=== PATIENT | female | born 1950 | race Caucasian/White ===

== ENCOUNTER → 2016-07-16 | Outpatient (CLI) | payer BC ==
[~2016-07-16] MED LIST: ATENOLOL50 MG PO; CLINDAMYCIN300 MG PO; CRESTOR10 M1 PO; CRESTOR10 MG PO; DARVOCET N 1001 TAB PO; GLYBURIDE5 MG PO; HYDROCODON-ACE1 EACH PO; KLONOPIN0.5 MG PO; KLONOPIN1 M1 PO; KLONOPIN1 MG PO; LASIX20 MG PO; LEVAQUIN750 M1 PO; METFORMIN500 MG PO; Motrin,Rufen800 MG PO; NATURE'S BLEND F1 MG PO; NORVASC5 MG PO; OYSTER SHELL CA1 T20 PO; POTASSIUM20 MEQ PO; PREDNISONE10 MG PO; PRINIVIL40 MG PO; VANCOCIN; VITAMIN D50000 I2 PO; VITAMIN D50000 I3 PO; ZANTAC 150150 MG PO; ZOLOFT100 MG PO; Zestril,Prinivi40 MG PO
[2016-07-16 09:22] LABS: HEMATOCRIT 39.4 % (37.0-47.0); HEMOGLOBIN 11.5 g/dl (12.0-16.0); MEAN CORPUSCULAR HGB 26.6 pg (27.0-31.0); MEAN CORPUSCULAR HGB CONC 29.2 g/dl (33.0-37.0); MEAN PLATELET VOLUME 11.8 fl (9.6-12.3); RED BLOOD COUNT 4.33 10*6/uL (4.10-5.10); RED CELL DISTRI WIDTH 14.8 % (0-14.5); WHITE BLOOD COUNT 6.8 10*3/uL (4.8-10.8)
[2016-07-16 09:51] LABS: ALBUMIN 3.2 gm/dl (3.1-4.5); BILIRUBIN, TOTAL 0.3 mg/dl (0.2-1.0); POTASSIUM 3.5 mmol/L (3.5-5.1); THYROID STIM HORMONE (HS) 2.59 uIU/ml (0.358-4.75); TOTAL PROTEIN 6.4 gm/dL (6.4-8.2)
[2016-07-16 10:08] LABS: VITAMIN D, 25-HYDROXY 115.9 ng/mL (30-100)
== END | disposition home or self-care (01) ==
LOC: LAB 08:49
PROVIDERS: Internal Medicine
DX: E11.9 Type 2 diabetes mellitus without complications (principal); I10 Essential (primary) hypertension; M47.26 Other spondylosis with radiculopathy, lumbar region; E78.5 Hyperlipidemia, unspecified; E55.9 Vitamin D deficiency, unspecified

== ENCOUNTER → 2016-07-23 | Outpatient (CLI) | payer BC | END | disposition home or self-care (01) | LOC: RAD 15:36 | DX: M47.895 Other spondylosis, thoracolumbar region (principal); G89.29 Other chronic pain; M41.84 Other forms of scoliosis, thoracic region; M54.41 Lumbago with sciatica, right side ==

== ENCOUNTER → 2016-11-09 | Outpatient (CLI) | payer BC ==
[2016-11-09 11:29] LABS: EST GLOM FILT AFRICAN AMERICAN > 60 ml/min
== END | disposition home or self-care (01) ==
LOC: CT 11-02 11:00 → LAB 10:52 → CT 11:00
PROVIDERS: Internal Medicine
DX: R91.1 Solitary pulmonary nodule (principal); J44.9 Chronic obstructive pulmonary disease, unspecified; R05 Cough; J45.909 Unspecified asthma, uncomplicated

== ENCOUNTER 2018-06-16 14:14 | Inpatient (IN) | payer BC ==
[~2018-06-16] VITALS: Ht 154.9 cm; Wt 89.1 kg
--- NOTE | ~2018-06-16 | PR ---
[place], [place] PROGRESS NOTE NAME: BO BOBBY UNIT #: [id number] ROOM: [facility] DOCTOR: SCHUYLER BURGESS MD,MAURA BIRTHDATE: [birth year] DOS: 06/18/2018 SUBJECTIVE: The patient remains on mechanical ventilation in the last 24 hours, PEEP of 10 cm water assist control volume control mechanical ventilation. Gradual reduction of the oxygen requirement was noted. She has not been noted with any acute hemodynamic instability. High dose sedation needed for comfort. The oxygen supplementation decreased 35% gradually from 100% oxygen supplementation in the last 24 hours. The patient is currently intubated orally. The patient does follow vocal commands with some agitated behavior noted at times with current use of intravenous infusion of Diprivan, has received several doses of Versed per nursing staff. She has not been reported with any hemodynamic instability. There were no signs of significant tachycardia. Only mild tachycardia noted, heart rate 100-102 beats per minute, which appeared to be sinus at the present time. Feeding was continued, well tolerated. Review of systems could not be completed since the patient is currently intubated. OBJECTIVE: VITAL SIGNS: Normal temperature, respiratory rate 18-20, heart rate 104-100, blood pressure 121/61 to 115/59. Pulse oxygen saturation recorded as 93% on 35% mechanical ventilator, assist control volume control mechanical ventilation. HEENT: Head was atraumatic. Eyes nonicterus. NECK: Supple. CARDIOVASCULAR: S1 and S2 audible. LUNGS: Noted without any crackles. Breaths are noted mildly decreased bilaterally. ABDOMEN: Soft with moderate obesity. Bowel sounds present. EXTREMITIES: No edema. VISIBLE SKIN: No lesions or rashes. MUSCULOSKELETAL: Without acute deformities. CENTRAL NERVOUS SYSTEM: Mental status appeared to be appropriate at this time. LABORATORY DATA: The patient had arterial blood gases which were done post-intubation, mechanical ventilation. The first arterial blood gas that was done shows a pH of 7.32, pCO2 of 55, pO2 of 100 on 100% oxygen supplementation. Arterial blood gas repeated a few hours later on 60% oxygen, pH is 7.33, pCO2 of 51, pO2 of 109. Arterial blood gas this morning on assist control volume control mechanical ventilation, pH is 7.33, pCO2 of 53, pO2 of 81. Chest x-ray: Mild pulmonary venous congestion, marked improvement in aeration of the lungs was noted with resolution of atelectasis and infiltration reduction in the left lower lobe. Endotracheal tube and NG tube were noted appropriately placed. IMPRESSION: 1. Resolving [id number] hypercapnic hypoxic respiratory failure as a result of acute pneumonia and atelectasis, mucus impaction of the left lower lobe bronchus. 2. Acute exacerbation of chronic obstructive pulmonary disease. 3. History of chronic nicotine dependency as well. 4. Moderate obesity. [place], [place] PROGRESS NOTE NAME: BO BOBBY UNIT #: [id number] ROOM: [facility] DOCTOR: SCHUYLER BURGESS MD,MAURA BIRTHDATE: [birth year] PLAN OF THERAPY: The patient was given a trial of CPAP 5 pressure support 10, but appeared to be agitated; however, the tidals were noted adequate at 500 and 600 mL on CPAP 5 pressure support of 10, maintaining normal oxygen saturation after observation about 10 minutes. The patient was asked about extubation. Post-extubation will be started on BiPAP for respiratory support. Bronchodilators administration. The BiPAP is started in the setting of 16/10. Two hours later, the patient could be started on clear liquids and advanced her diet. Usual care. Reduction of Solu-Medrol will be done. Decrease the Solu-Medrol to 60 mg b.i.d. Discontinuation of Protonix as it is not necessary for the patient and the patient will be liberated from mechanical ventilation. Versed and Diprivan have been already discontinued. Usual care, other supportive therapy, plan of management. Discontinuation of chlorhexidine rinse for this patient as well. Supportive therapy, plan of management and other care. Additional changes will be made based on progression of the illness in the next several hours. No changes in the antibiotics. Continue medical management for hyperglycemia. DVT prophylaxis. Total time in pulmonary/critical care evaluation and management was 36 minutes. MAURA PAYAN MD CM:PNTRANS [id number] MAURA BURGESS MD 06/18/18 1501 interface
--- NOTE | ~2018-06-16 | PROC NOTE ---
[place], [place] PROCEDURE NOTE NAME: BO BOBBY UNIT #: [id number] ROOM: [facility] DOCTOR: SCHUYLER BURGESS MD,MAURA BIRTHDATE: [birth year] DOS: 06/17/2018 PROCEDURE: Bronchoscopy. PREOPERATIVE DIAGNOSIS: Atelectasis of the left lung. POSTOPERATIVE DIAGNOSES: Removal of the complete occlusion with the mucus plug of the left lower lobe bronchus and the upper lung bronchus. There were no endobronchial obstructive lesions, significant inflammatory changes noted consistent with acute pneumonia. There were no discrete endobronchial lesions seen. PROCEDURE DESCRIPTION: Informed consent obtained for the patient. The patient brought to the OR, intubated successfully. Procedure done under general anesthesia. After the patient was intubated, the video bronchoscope advanced to the endotracheal tube lower part of trachea. Lower part of the trachea noted small to moderate secretion right upper, right middle, right lower lobe bronchi were all noted patent. Minimal secretions suctioned out. The patient noted complete occlusion of the left lower lobe bronchus with upper lung bronchus, mixture of the mucoid secretion with mixture of purulent secretion. There was no aspiration particles noted or food. No endobronchial obstruction noted. No severe inflammatory changes noted with mucosal edema in that area. All the secretions suctioned out with the help of normal saline wash, sent for cultures. Chest x-ray postprocedure was done and noted with reexpansion of the left lower lung. The patient remains intubated at this time with further medical management order with the ICU orders. MAURA PAYAN MD CM:PROCNOTE:PROCEDURE NOTE [id number] MAURA BURGESS MD
--- NOTE | ~2018-06-16 | PR ---
[place], [place] PROGRESS NOTE [id number] UNIT #: [id number] ROOM: 408 DOCTOR: SCHUYLER BURGESS MD,MAURA BIRTHDATE: [birth year] DOS: 06/19/2018 SUBJECTIVE: The patient has been noted comfortable at this time, resting on the back. The patient was liberated from mechanical ventilation yesterday without any difficulty. Has not been reported any symptoms of chest pain. Denies symptoms of nausea, vomiting, diarrhea, abdominal pain, hematemesis, melena, or hematochezia. General weakness and fatigue were noted, which has been improving. There were no symptoms of abdominal pain. There were no symptoms of pain of the lower extremity. Remaining systems were reviewed. They were noted all negative. PHYSICAL EXAMINATION: VITAL SIGNS: Normal temperature, respiratory rate of 20, heart rate 74, blood pressure 150/90 this morning. Pulse oxygen saturation on 4 liter nasal cannula was 90% saturation ____ BiPAP was 95% saturation. HEENT: Small hemorrhage in the conjunctiva was noted in the left eye. NECK: Supple. CARDIOVASCULAR: S1 and S2 audible. LUNGS: Moderate reduction of breath sounds in the lungs were noted bilaterally. ABDOMEN: Soft and nontender. Bowel sounds present. EXTREMITIES: The patient was noted without any acute edema. MUSCULOSKELETAL: Without any acute deformities. CENTRAL NERVOUS SYSTEM: The patient cranial nerves 2-12 intact. General weakness was noted. SKIN: No lesions or rashes. LABORATORY DATA: Final cultures of the bronchial washing noted as no bacterial growth. CMP that was done on 06/19/2018, BUN 31, creatinine was normal, glucose 113. Magnesium was 2.2. Albumin 2.2. AST and ALT was noted mildly elevated. CBC: WBC count was normal, hemoglobin 10.3, and platelet count normal. IMPRESSION: 1. Liberation from mechanical ventilation ____ resolving due to chronic hypoxic and hypercapnic respiratory failure, atelectasis. Pleural fluid noted on the left side. 2. Abnormal LFTs may be related to hepatic steatosis, other etiology should be considered. 3. Chronic nicotine dependence. PLAN OF Treatment: Solu-Medrol dose at this time will be decreased to 40 mg b.i.d. Ambulation will be encouraged. Continue the BiPAP, which was ordered yesterday intermittently during the day and continue at nighttime. Supportive therapy, plan of management and care plan of treatment and therapies. [place], [place] PROGRESS NOTE NAME: BO BOBBY UNIT #: [id number] ROOM: [facility] DOCTOR: MAURA JIMENEZ MD BIRTHDATE: [birth year] MAURA PAYAN MD CM:PNTRANS [id number] MAURA BURGESS MD 06/19/18 1415 interface
--- NOTE | ~2018-06-16 | CON ---
[place], [place] REPORT OF CONSULTATION NAME: BO BOBBY UNIT #: [id number] ROOM: [facility] DOCTOR: MAURA JIMENEZ MD BIRTHDATE: [birth year] DOS: 06/17/2018 PULMONARY CRITICAL CARE CONSULTATION, EVALUATION, AND MANAGEMENT CONSULTATION REQUESTED BY: Hospitalist services. REASON FOR CONSULTATION: For assessment of current atelectasis of the left lung as well as respiratory failure management. HISTORY OF PRESENT ILLNESS: This is a 67-year-old white female patient, who has been admitted under the hospitalist services on 06/16/2018. The patient was noted with ongoing symptoms of getting generalized weakness and fatigue and multiple falls at home because of that. The patient presented to the Emergency Room for further assessment. Shortness breath was also reported with exertion with nonproductive cough, which has been noted excessive, not able to expectorate sputum. The patient has been admitted to the hospital. The chest x-ray noted with whiteout of the left lung. The patient has CT of the chest done, which shows atelectasis of the left lung as well with associated pleural fluid. She has been admitted to the Intensive Care Unit for further medical management, currently noted on the BiPAP for the medical management of respiratory failure. The BiPAP has now been noted with complete resolution of the respiratory distress. The BiPAP was also noted with movement of the mass several times with excessive leakage. The patient denies any symptoms of hemoptysis. She does not report any symptoms of chest pain. PAST MEDICAL HISTORY: 1. The patient reported as history of congestive heart failure, systolic or diastolic unknown. 2. Reported history of pulmonary nodules on the right side. 3. Hyperlipidemia. 4. Gastroesophageal reflux. 5. Essential hypertension. 6. Chronic obesity. 7. Type 2 diabetes mellitus. PAST SURGICAL HISTORY: Reported as surgery of the arm and D and C. HOME MEDICATIONS: Reported as use of Norvasc, vitamin D, vitamin D3, Klonopin, folic acid, Motrin, Basaglar insulin, lisinopril, metformin, potassium chloride, ranitidine, sertraline, Anoro Ellipta, Crestor, and Zoloft. DRUG ALLERGIES: REPORTED ALLERGIES TO THE VALIUM, IT IS CAUSING HALLUCINATIONS. SOCIAL HISTORY: The patient is currently not , lives at home, has been noted heavy tobacco use from the age of [id number], 2 packs of cigarettes per day, active use until hospitalization. She denies ETOH, alcohol use, or illicit drugs. FAMILY HISTORY: The patient's father is an 87-year-old with history of hypertension. The patient's mother is an 87-year-old with history of diabetes [place], [place] REPORT OF CONSULTATION NAME: BO BOBBY UNIT #: [id number] ROOM: [facility] DOCTOR: MAURA JIMENEZ MD BIRTHDATE: [birth year] and hypertension reported. REVIEW OF SYSTEMS: Limited because of the current use of the BiPAP and respiratory distress reported with symptoms of severe fatigue and tiredness as well. There were no symptoms of fever or chills reported. EYES: Denies burning, discharge, redness, or diplopia. EARS, NOSE, AND THROAT SYMPTOMS: No sore throat, hoarseness, otalgia, or postnasal drainage. CARDIOVASCULAR SYSTEM: Denies any orthopnea, edema, pain of the lower extremities, or palpitations. GASTROINTESTINAL SYMPTOMS: No dysphagia, nausea, vomiting, diarrhea, abdominal pain, hematemesis, melena, or hematochezia. SKIN: Denies abnormal lesions or rashes. MUSCULOSKELETAL: The patient denies joint pain, redness, or tenderness. Remaining systems were reviewed and they were noted all negative. PHYSICAL EXAMINATION: GENERAL: This is a 67-year-old white female patient with respiratory distress, tachypnea, on the BiPAP this morning of assessment. The patient was assessed initially. Height of the patient recorded as 5 feet 1 inch, weight of 196 pounds, BMI of 37. VITAL SIGNS: Normal temperature. The respiratory rate of the patient ranges between 20-24, heart rate of 91-100. Temperature of the patient noted as 101 degree Fahrenheit. Blood pressure is 148/81-151/82. Pulse oxygen saturation on 4 liters nasal cannula was 85%, on BiPAP was 94% saturation on admission, on room air was 78% saturation of oxygen. HEENT: Head was atraumatic. Eyes nonicterus. NECK: Supple. CARDIOVASCULAR SYSTEM: S1, S2 is audible. LUNGS: Wheezing was noted on the right chest auscultation, absent breath sounds of the left chest auscultation. ABDOMEN: Soft with moderate obesity. Bowel sounds present. EXTREMITIES: Noted without any edema. Chronic obesity findings. MUSCULOSKELETAL: With no deformities. VISIBLE SKIN: No lesions or rashes. CENTRAL NERVOUS SYSTEM: The patient is able to understand the questions and answer the questions. There were no focal deficits. Further examination could not be performed. LABORATORY DATA ASSESSMENT: CBC that was done on 06/16/2018, WBC count is 20.9, hemoglobin and hematocrit are normal, and platelet count was normal. The lactic acid is 2.0 yesterday. PT and PTT yesterday was normal. CMP yesterday on admission, BUN is 25, creatinine is normal, glucose is 190, potassium is 2.7, and CO2 of 33. CPK is 360. The troponin additional 2 sets yesterday remains normal. PT and INR this morning was 1.2, PTT was normal. The CBC of the patient this morning, WBC count is 16.8, hemoglobin is 11.3, and platelet count is normal. The CMP of the patient this morning, normal BUN and creatinine, glucose is 244, potassium is noted at 3.5, normal after supplementation of potassium from yesterday. Arterial blood gases that was done yesterday in the evening, pH of 7.39, pCO2 of 51, and pO2 of 76 on 11 liters high flow nasal [place], [place] REPORT OF CONSULTATION NAME: BO BOBBY UNIT #: [id number] ROOM: [facility] DOCTOR: LYNN JIMENEZ MDM BIRTHDATE: [birth year] cannula. No other arterial blood gas was done afterwards. RADIOLOGY DATA ASSESSMENT: Chest x-ray that was done yesterday on admission as left lower lobe infiltration with increased pulmonary venous congestion marking was noted. The CT scan of the chest that was done as a CTA protocol later on in the evening shows complete atelectasis in left lower lobe as well as partial of the left upper lobe. A small pleural fluids were noted with that. There was no visible lymphadenopathy. A 13 mm nodule noted in the right lower lobe, which has been noted stable in comparison of the patient's CT scan of the chest that was done on 11/09/2016. IMPRESSION: 1. The patient has been currently noted with acute aspiration pneumonia with significant occlusion of the left lower lobe and left upper lobe bronchus with atelectasis. 2. A 13 mm nodule in the right lower lobe, which appear to be stable, unchanged from previous CT scan assessment. 3. Progressive severe acute hypoxemic respiratory failure secondary to current acute pneumonia, endobronchial obstruction, and exacerbation of chronic obstructive pulmonary disease combination. 4. The patient with chronic hypercarbia was also seen as well. 5. Heavy nicotine dependence. 6. Moderate obesity. 7. Other medical illnesses reported as unchanged. 8. Severe hypokalemia, seemed to be resolved, was resulting in generalized weakness. PLAN OF MANAGEMENT: The patient's cultures on the blood has been taken. The patient will be taken to the OR, where she would be intubated, bronchoscopy will be done, and possible continuation of mechanical ventilation after that for at least 24-48 hours. If there be no endobronchial obstructive lesions, keep the lungs expanded. Bronchodilators to be continued every 4 hours. Use of the corticosteroids. Community-acquired pneumonia, gram-positive infection would be considered as well as Strep pneumonia. The patient is receiving intravenous Rocephin 1 gram b.i.d. and Zithromax ____ dosing for the community-acquired pneumonia management in the ICU. DVT prophylaxis. Ventilator bundle management could be started once the patient is intubated. She remains intubated. She will be started nutritional support if she remains on the ventilator as trophic feeding as Pulmocare 20 mL an hour. Other additional treatment changes will be ordered based on the progression of the illness. Total time in pulmonary critical care, evaluation, and management for the patient was 39 minutes. [place], [place] REPORT OF CONSULTATION NAME: BO BOBBY UNIT #: [id number] ROOM: [facility] DOCTOR: MAURA JIMENEZ MD BIRTHDATE: [birth year] MAURA PAYAN MD CM:CONSTR:REPORT OF CONSULTATION 1326 06/18/18 0304 interface
--- NOTE | ~2018-06-16 | EKG ---
[place], [place] ELECTROCARDIOGRAM REPORT NAME: BO BOBBY UNIT #: [id number] ROOM: [facility] DOCTOR: KODY DRAFT REPORT BIRTHDATE: [birth year] [facility] Test Date: 2018-06-16 Test Time: 14:52:30 Pat Name: BO BOBBY Department: Room: [facility] Gender: F Bandage Maker: Alondra Hudson : 1950 Requested By: VALERIE BINGHAM PA-C Order Number: [id number] Reading MD: Gabe Kerr MD Measurements Intervals [place] Rate: 94 P: 63 MI: 140 QRS: 23 QRSD: 94 T: 33 QT: 349 QTc: 437 Interpretive Statements Sinus rhythm Atrial premature complexes Abnormal R-wave progression, late transition Baseline wander in lead(s) V2 Electronically Signed On 06-17-2018 12:42:11 PST by Gabe Kerr MD CM:EKGRPT:ELECTROCARDIOGRAM REPORT [id number] VALERIE BINGHAM PA-C EPIPHZACHERY DRAFT REPORT VALERIE BINGHAM PA-C
[2018-06-16 14:25] VITALS: BP 148/81
[2018-06-16 14:48] VITALS: BP 141/79
[2018-06-16 14:54] LABS: BILIRUBIN NEGATIVE (NEGATIVE); BLOOD 3+ (NEGATIVE); CLARITY SL CLOUDY (CLEAR); COLOR YELLOW (YELLOW); GLUCOSE NEGATIVE (NEGATIVE); KETONE 1+ (NEGATIVE); LEUKO ESTERASE NEGATIVE (NEGATIVE); NITRITE POSITIVE (NEGATIVE); SPECIFIC GRAVITY >= 1.030 (1.005-1.030)
[2018-06-16 15:02] LABS: BACTERIA 4+; WBC 16-20 wbc/hpf (0-5)
[2018-06-16 15:08] LABS: BASO % 0.1 % (0.0-1.0); HEMOGLOBIN 12.3 g/dl (12.0-16.0); LYMPH # 0.9 10*3/uL (1.3-4.4); LYMPH % 4.4 % (27.0-41.0); MEAN CELL VOLUME 86.1 fl (81.0-99.0); MEAN CORPUSCULAR HGB 25.8 pg (27.0-31.0); MEAN PLATELET VOLUME 11.1 fl (9.6-12.3); MONO # 1.1 10*3/uL (0.1-1.0); MONO % 5.4 % (3.0-9.0); NEUT # 18.6 10*3/uL (2.3-7.9); NEUT % 89.3 % (47.0-73.0); PLATELET COUNT AUTOMATED 166 10*3/uL (130-400); RED BLOOD COUNT 4.76 10*6/uL (4.10-5.10); RED CELL DISTRI WIDTH 17.9 % (0-14.5); WHITE BLOOD COUNT 20.9 10*3/uL (4.8-10.8)
[2018-06-16 15:22] LABS: ACT PARTIAL THROMBO TIME 28.2 SECONDS (20.8-31.5); INTERNATIONAL NORM RATIO 1.1 (2.0-3.5)
[2018-06-16 15:35] LABS: ALBUMIN 2.7 gm/dl (3.1-4.5); ALKALINE PHOSPHATASE 138 U/L (45-117); BUN 25 mg/dl (7-24); CHLORIDE 96 mmol/L (98-107); CPK 360 U/L (26-192); CREATININE 0.71 mg/dL (0.55-1.02); LIPASE 61 U/L (73-393); POTASSIUM 2.7 mmol/L (3.5-5.1); SGOT/AST 17 IU/L (3-35); SGPT/ALT 10 U/L (12-78); SODIUM 137 mmol/L (136-145); TOTAL PROTEIN 7.4 gm/dL (6.4-8.2)
[2018-06-16 15:36] LABS: TROPONIN I < 0.015 ng/ml (<0.045)
[2018-06-16 15:48] VITALS: BP 146/72
[2018-06-16 16:20] VITALS: BP 148/74
[2018-06-16 17:15] VITALS: BP 151/82
[2018-06-16] MEDS ORDERED: GLUCOPHAGE500 M1 PO (17:55)
[2018-06-16] MEDS ORDERED: BASAG SOL SC ×2 (18:02→18:03)
[2018-06-16] MEDS ORDERED: VITAMIN D32000 UNI1 PO (18:04)
[2018-06-16] MEDS ORDERED: ANORO ELLIPTA1 EACH INH (18:07)
[2018-06-16] MEDS ORDERED: NOVOLOG FL100 UNIT/1 SC (18:09)
[2018-06-16 20:00] VITALS: BP 113/52
[2018-06-16 21:10] LABS: ABG BASE EXCESS 5.6 mmol/L (-2.0-2.0); ABG HCO3 30.8 mmol/l (22-26); ABG O2 SATURATION 95.9 % (95-97); ARTERIAL BLOOD GAS PCO2 51.3 mmHg (35-45); ARTERIAL BLOOD GAS PH 7.399 (7.35-7.45); ARTERIAL BLOOD GAS PO2 76.8 mmHg (80-90)
[2018-06-17] VITALS (8 sets, daily range): BP systolic 95–132; BP diastolic 51–78
[2018-06-17 03:40] LABS: HEMOGLOBIN 11.3 g/dl (12.0-16.0); MEAN CELL VOLUME 85.6 fl (81.0-99.0); MEAN CORPUSCULAR HGB 26.2 pg (27.0-31.0); MEAN CORPUSCULAR HGB CONC 30.5 g/dl (33.0-37.0); MEAN PLATELET VOLUME 11.4 fl (9.6-12.3); PLATELET COUNT AUTOMATED 145 10*3/uL (130-400); RED BLOOD COUNT 4.32 10*6/uL (4.10-5.10); RED CELL DISTRI WIDTH 18.1 % (0-14.5); WHITE BLOOD COUNT 16.8 10*3/uL (4.8-10.8)
[2018-06-17 03:55] LABS: ACT PARTIAL THROMBO TIME 28.9 SECONDS (20.8-31.5); INTERNATIONAL NORM RATIO 1.2 (2.0-3.5)
[2018-06-17 03:59] LABS: ALBUMIN 2.2 gm/dl (3.1-4.5); ALKALINE PHOSPHATASE 135 U/L (45-117); BUN 23 mg/dl (7-24); CHLORIDE 102 mmol/L (98-107); CHOLESTEROL 89 mg/dL (<200); CREATININE 0.68 mg/dL (0.55-1.02); HDL CHOLESTEROL 7 mg/dl (40-60); LDL CHOLESTEROL 17 mg/dL (9-159); PHOSPHOROUS 2.6 mg/dL (2.5-4.9); POTASSIUM 3.5 mmol/L (3.5-5.1); SGOT/AST 19 IU/L (3-35); SGPT/ALT 11 U/L (12-78); SODIUM 139 mmol/L (136-145); TOTAL PROTEIN 6.7 gm/dL (6.4-8.2); TRIGLYCERIDES 323 mg/dl (<150); VLDL CHOLESTEROL 65 mg/dL (6-40)
[2018-06-17 04:00] LABS: FREE T4 1.19 ng/dl (0.76-1.46)
[2018-06-17 04:04] LABS: THYROID STIM HORMONE (HS) 0.494 uIU/ml (0.358-4.75)
[2018-06-17 04:06] LABS: PLATELET SUFFICIENCY LOW (NORMAL); TOTAL CELLS COUNTED 100 #CELLS
[2018-06-17 13:12] LABS: ABG BASE EXCESS 1.5 mmol/L (-2.0-2.0); ABG HCO3 28.1 mmol/l (22-26); ABG O2 SATURATION 99.5 % (95-97); ARTERIAL BLOOD GAS PCO2 55.9 mmHg (35-45); ARTERIAL BLOOD GAS PH 7.32 (7.35-7.45)
[2018-06-17 17:41] LABS: ABG BASE EXCESS 0.6 mmol/L (-2.0-2.0); ABG HCO3 26.8 mmol/l (22-26); ARTERIAL BLOOD GAS PCO2 51.5 mmHg (35-45); ARTERIAL BLOOD GAS PH 7.332 (7.35-7.45)
[2018-06-18] VITALS (8 sets, daily range): BP systolic 100–139; BP diastolic 49–98
[2018-06-18 06:28] LABS: BASO % 0.1 % (0.0-1.0); HEMATOCRIT 34.4 % (37.0-47.0); HEMOGLOBIN 10.2 g/dl (12.0-16.0); LYMPH # 0.5 10*3/uL (1.3-4.4); LYMPH % 5.3 % (27.0-41.0); MEAN CORPUSCULAR HGB 26.3 pg (27.0-31.0); MEAN CORPUSCULAR HGB CONC 29.7 g/dl (33.0-37.0); MEAN PLATELET VOLUME 11.8 fl (9.6-12.3); MONO # 0.3 10*3/uL (0.1-1.0); MONO % 3.3 % (3.0-9.0); NEUT # 8.4 10*3/uL (2.3-7.9); NEUT % 89.5 % (47.0-73.0); PLATELET COUNT AUTOMATED 148 10*3/uL (130-400); RED BLOOD COUNT 3.88 10*6/uL (4.10-5.10); RED CELL DISTRI WIDTH 18.6 % (0-14.5); WHITE BLOOD COUNT 9.4 10*3/uL (4.8-10.8)
[2018-06-18 06:52] LABS: MEAN CELL VOLUME 88.7 fl (81.0-99.0)
[2018-06-18 06:57] LABS: CHLORIDE 102 mmol/L (98-107); SODIUM 139 mmol/L (136-145)
[2018-06-18 07:04] LABS: ABG HCO3 28.1 mmol/l (22-26); ABG O2 SATURATION 97.3 % (95-97); ARTERIAL BLOOD GAS PCO2 53.6 mmHg (35-45); ARTERIAL BLOOD GAS PH 7.337 (7.35-7.45); ARTERIAL BLOOD GAS PO2 81.5 mmHg (80-90)
[2018-06-18 07:04] LABS: ALBUMIN 1.9 gm/dl (3.1-4.5); ALKALINE PHOSPHATASE 129 U/L (45-117); CREATININE 0.73 mg/dL (0.55-1.02); PHOSPHOROUS 2.6 mg/dL (2.5-4.9); SGOT/AST 41 IU/L (3-35); SGPT/ALT 28 U/L (12-78); TOTAL PROTEIN 6.3 gm/dL (6.4-8.2)
[2018-06-18 07:09] LABS: BUN 36 mg/dl (7-24)
[2018-06-18 15:04] LABS: ACID FAST SPEC PROCESSING Concentration (.)
[2018-06-19] VITALS: BP 139/75
[2018-06-19 04:00] VITALS: BP 122/70
[2018-06-19 06:43] LABS: HEMATOCRIT 35.1 % (37.0-47.0); HEMOGLOBIN 10.3 g/dl (12.0-16.0); MEAN CELL VOLUME 87.1 fl (81.0-99.0); MEAN CORPUSCULAR HGB 25.6 pg (27.0-31.0); MEAN CORPUSCULAR HGB CONC 29.3 g/dl (33.0-37.0); MEAN PLATELET VOLUME 11.5 fl (9.6-12.3); NUCLEATED RED BLOOD CELL 0.3 % (0.0-0.0); PLATELET COUNT AUTOMATED 175 10*3/uL (130-400); RED BLOOD COUNT 4.03 10*6/uL (4.10-5.10); RED CELL DISTRI WIDTH 18.6 % (0-14.5); WHITE BLOOD COUNT 7.3 10*3/uL (4.8-10.8)
[2018-06-19 07:15] LABS: ALBUMIN 2.2 gm/dl (3.1-4.5); ALKALINE PHOSPHATASE 145 U/L (45-117); BUN 31 mg/dl (7-24); CHLORIDE 107 mmol/L (98-107); CREATININE 0.62 mg/dL (0.55-1.02); PHOSPHOROUS 2.7 mg/dL (2.5-4.9); POTASSIUM 3.9 mmol/L (3.5-5.1); SGOT/AST 114 IU/L (3-35); SGPT/ALT 99 U/L (12-78); SODIUM 145 mmol/L (136-145); TOTAL PROTEIN 6.2 gm/dL (6.4-8.2)
[2018-06-19 07:26] LABS: PLATELET SUFFICIENCY NORMAL (NORMAL); STOMATOCYTE FEW; TOTAL CELLS COUNTED 100 #CELLS; TOXIC GRANULATION SLIGHT
[2018-06-19 07:45] VITALS: BP 158/98
[2018-06-19] MEDS ORDERED: PREDNISONE10 MG PO (11:06)
[2018-06-19] MEDS ORDERED: DOXYCYCLINE100 M3 PO (11:06)
[2018-06-19] MEDS ORDERED: BASAG SOL SC ×2 (11:07)
[2018-06-19 12:00] VITALS: BP 155/88
[2018-06-19] MEDS ORDERED: OXYGEN NAS (14:36)
[2018-06-19 16:00] VITALS: BP 153/79
[2018-06-19 20:00] VITALS: BP 160/76
[2018-06-20] VITALS: BP 162/80
[2018-06-20 06:38] LABS: ALBUMIN 2.3 gm/dl (3.1-4.5); ALKALINE PHOSPHATASE 136 U/L (45-117); CHLORIDE 101 mmol/L (98-107); POTASSIUM 3.2 mmol/L (3.5-5.1); SGOT/AST 39 IU/L (3-35); SGPT/ALT 75 U/L (12-78); SODIUM 145 mmol/L (136-145); TOTAL PROTEIN 6.3 gm/dL (6.4-8.2)
[2018-06-20 06:42] LABS: BUN 17 mg/dl (7-24)
[2018-06-20 08:00] VITALS: BP 166/82
[2018-06-20] MEDS ORDERED: KLOR-CON M2020 ME1 PO (09:37)
[2018-06-20] MEDS ORDERED: BSC (10:09)
[2018-06-20] MEDS ORDERED: HOSPBED (10:09)
== END 2018-06-20 12:26 | disposition home or self-care (01) | DRG 871 ==
LOC: ED 14:14 → EDHOLD 16:23 → ICCU 16:23 → 5E 16:23 → ICCU 06-17 00:59 → 4E 06-19 12:45
PROVIDERS: Internal Medicine; Internal Medicine Critical Care Medicine; Physician Assistant; Student in an Organized Health Care Education/Training Program
PROC: 5A09357 Assistance with Respiratory Ventilation, Less than 24 Consecutive Hours, Continuous Positive Airway Pressure (ICD-10-PCS; principal; 2018-06-16)
PROC: 0BC48ZZ Extirpation of Matter from Right Upper Lobe Bronchus, Via Natural or Artificial Opening Endoscopic (ICD-10-PCS; 2018-06-17)
PROC: 0BC88ZZ Extirpation of Matter from Left Upper Lobe Bronchus, Via Natural or Artificial Opening Endoscopic (ICD-10-PCS; 2018-06-17)
PROC: 0BC68ZZ Extirpation of Matter from Right Lower Lobe Bronchus, Via Natural or Artificial Opening Endoscopic (ICD-10-PCS; 2018-06-17)
PROC: 0BCB8ZZ Extirpation of Matter from Left Lower Lobe Bronchus, Via Natural or Artificial Opening Endoscopic (ICD-10-PCS; 2018-06-17)
PROC: 0BC58ZZ Extirpation of Matter from Right Middle Lobe Bronchus, Via Natural or Artificial Opening Endoscopic (ICD-10-PCS; 2018-06-17)
PROC: 0BC18ZZ Extirpation of Matter from Trachea, Via Natural or Artificial Opening Endoscopic (ICD-10-PCS; 2018-06-17)
PROC: 5A09357 Assistance with Respiratory Ventilation, Less than 24 Consecutive Hours, Continuous Positive Airway Pressure (ICD-10-PCS; 2018-06-18)
PROC: 5A09357 Assistance with Respiratory Ventilation, Less than 24 Consecutive Hours, Continuous Positive Airway Pressure (ICD-10-PCS; 2018-06-19)
DX: A41.9 Sepsis, unspecified organism (principal); E43 Unspecified severe protein-calorie malnutrition; J96.22 Acute and chronic respiratory failure with hypercapnia; J96.21 Acute and chronic respiratory failure with hypoxia; J69.0 Pneumonitis due to inhalation of food and vomit; N30.01 Acute cystitis with hematuria; I50.32 Chronic diastolic (congestive) heart failure; J98.11 Atelectasis; J44.1 Chronic obstructive pulmonary disease with (acute) exacerbation; E87.6 Hypokalemia; I11.0 Hypertensive heart disease with heart failure; R91.1 Solitary pulmonary nodule; F17.210 Nicotine dependence, cigarettes, uncomplicated; K21.9 Gastro-esophageal reflux disease without esophagitis; R65.20 Severe sepsis without septic shock; E66.8 Other obesity; E78.5 Hyperlipidemia, unspecified; F41.1 Generalized anxiety disorder; B96.1 Klebsiella pneumoniae [K. pneumoniae] as the cause of diseases classified elsewhere; H10.89 Other conjunctivitis; E11.65 Type 2 diabetes mellitus with hyperglycemia; R29.6 Repeated falls; R53.1 Weakness; Z79.4 Long term (current) use of insulin; Z88.8 Allergy status to other drugs, medicaments and biological substances; Z82.49 Family history of ischemic heart disease and other diseases of the circulatory system; Z83.3 Family history of diabetes mellitus; Z68.37 Body mass index [BMI] 37.0-37.9, adult; Z79.899 Other long term (current) drug therapy

== ENCOUNTER 2018-06-22 16:42 | Inpatient (IN) | payer BC, MEDICARE ==
[~2018-06-22] VITALS: Ht 154.9 cm; Wt 90.3 kg
[~2018-06-22 16:42] MED LIST changes: +ANORO ELLIPTA1 EACH INH; +BASAG SOL SC; +BSC; +DOXYCYCLINE100 M3 PO; +GLUCOPHAGE500 M1 PO; +HOSPBED; +KLOR-CON M2020 ME1 PO; +NOVOLOG FL100 UNIT/1 SC; +OXYGEN NAS; +VITAMIN D32000 UNI1 PO
[2018-06-22 17:21] LABS: BILIRUBIN NEGATIVE (NEGATIVE); BLOOD TRACE-INTACT (NEGATIVE); CLARITY SL CLOUDY (CLEAR); COLOR YELLOW (YELLOW); GLUCOSE NEGATIVE (NEGATIVE); KETONE NEGATIVE (NEGATIVE); LEUKO ESTERASE 1+ (NEGATIVE); NITRITE NEGATIVE (NEGATIVE); PH 6.5 (5.0-9.0); SPECIFIC GRAVITY 1.015 (1.005-1.030); UROBILINOGEN 0.2 E.U./dl (0.2-1.0)
[2018-06-22 17:26] LABS: BACTERIA 2+; EPITHELIAL CELLS 20-25
[2018-06-22 18:19] VITALS: BP 160/89
[2018-06-22] MEDS ORDERED: VITAMIN D-32000 UNI1 PO (18:59)
[2018-06-22] MEDS ORDERED: ATENOLOL50 M1 PO (19:00)
[2018-06-22 19:26] LABS: HEMATOCRIT 37.6 % (37.0-47.0); HEMOGLOBIN 11.4 g/dl (12.0-16.0); MEAN CELL VOLUME 85.6 fl (81.0-99.0); MEAN CORPUSCULAR HGB CONC 30.3 g/dl (33.0-37.0); MEAN PLATELET VOLUME 10.8 fl (9.6-12.3); PLATELET COUNT AUTOMATED 276 10*3/uL (130-400); RED BLOOD COUNT 4.39 10*6/uL (4.10-5.10); RED CELL DISTRI WIDTH 17.8 % (0-14.5); WHITE BLOOD COUNT 9.1 10*3/uL (4.8-10.8)
[2018-06-22 19:30] LABS: ALBUMIN 2.7 gm/dl (3.1-4.5); ALKALINE PHOSPHATASE 96 U/L (45-117); BUN 20 mg/dl (7-24); CHLORIDE 97 mmol/L (98-107); CREATININE 0.58 mg/dL (0.55-1.02); PHOSPHOROUS 3.9 mg/dL (2.5-4.9); POTASSIUM 3.2 mmol/L (3.5-5.1); SGOT/AST 13 IU/L (3-35); SGPT/ALT 45 U/L (12-78); SODIUM 141 mmol/L (136-145); TOTAL PROTEIN 6.3 gm/dL (6.4-8.2)
[2018-06-22 19:56] LABS: PLATELET SUFFICIENCY NORMAL (NORMAL); STOMATOCYTE MODERATE; TOTAL CELLS COUNTED 100 #CELLS
[2018-06-22 20:00] VITALS: BP 159/85
[2018-06-23] VITALS: BP 144/68
[2018-06-23 06:30] LABS: HEMATOCRIT 38.1 % (37.0-47.0); HEMOGLOBIN 11.1 g/dl (12.0-16.0); MEAN CELL VOLUME 87.4 fl (81.0-99.0); MEAN CORPUSCULAR HGB 25.5 pg (27.0-31.0); MEAN CORPUSCULAR HGB CONC 29.1 g/dl (33.0-37.0); MEAN PLATELET VOLUME 10.7 fl (9.6-12.3); PLATELET COUNT AUTOMATED 236 10*3/uL (130-400); RED BLOOD COUNT 4.36 10*6/uL (4.10-5.10); RED CELL DISTRI WIDTH 17.5 % (0-14.5); WHITE BLOOD COUNT 8.6 10*3/uL (4.8-10.8)
[2018-06-23 06:57] LABS: PLATELET SUFFICIENCY NORMAL (NORMAL); TOTAL CELLS COUNTED 100 #CELLS
[2018-06-23 07:00] LABS: ALBUMIN 2.4 gm/dl (3.1-4.5); ALKALINE PHOSPHATASE 82 U/L (45-117); BUN 16 mg/dl (7-24); CHLORIDE 97 mmol/L (98-107); CREATININE 0.55 mg/dL (0.55-1.02); POTASSIUM 2.8 mmol/L (3.5-5.1); SGOT/AST 17 IU/L (3-35); SGPT/ALT 38 U/L (12-78); SODIUM 142 mmol/L (136-145); TOTAL PROTEIN 5.8 gm/dL (6.4-8.2)
[2018-06-23 08:00] VITALS: BP 147/77
[2018-06-23 12:00] VITALS: BP 143/67
== END 2018-06-23 14:32 | disposition home health service (06) | DRG 189 ==
LOC: ED 16:42 → 4E 17:24 → EDHOLD 17:24 → 4E 17:34
PROVIDERS: Physician Assistant; Student in an Organized Health Care Education/Training Program; ADMIT Internal Medicine
DX: J96.01 Acute respiratory failure with hypoxia (principal); E43 Unspecified severe protein-calorie malnutrition; I50.32 Chronic diastolic (congestive) heart failure; N30.01 Acute cystitis with hematuria; J96.02 Acute respiratory failure with hypercapnia; R00.1 Bradycardia, unspecified; F17.210 Nicotine dependence, cigarettes, uncomplicated; F41.9 Anxiety disorder, unspecified; K21.9 Gastro-esophageal reflux disease without esophagitis; E78.5 Hyperlipidemia, unspecified; E11.9 Type 2 diabetes mellitus without complications; I11.0 Hypertensive heart disease with heart failure; E55.9 Vitamin D deficiency, unspecified; E53.8 Deficiency of other specified B group vitamins; E66.9 Obesity, unspecified; E87.6 Hypokalemia; E11.65 Type 2 diabetes mellitus with hyperglycemia; Z88.9 Allergy status to unspecified drugs, medicaments and biological substances; Z68.37 Body mass index [BMI] 37.0-37.9, adult; Z72.89 Other problems related to lifestyle; Z82.49 Family history of ischemic heart disease and other diseases of the circulatory system; Z83.3 Family history of diabetes mellitus; Z71.6 Tobacco abuse counseling; Z79.4 Long term (current) use of insulin

== ENCOUNTER 2021-04-11 19:01 | Inpatient (IN) | payer MEDICARE ==
[~2021-04-11] VITALS: Ht 157.5 cm; Wt 75.9 kg
[~2021-04-11 19:01] MED LIST changes: +ATENOLOL50 M1 PO; +AUGMENTIN600 MG/5 M PO; +B12,B-12,B 12500 MC1 PO; +IBU800 M1 PO; +METFORMIN HYD1000 MG PO; +NYSTOP60 GM T; +VITAMIN D-32000 UNI1 PO
[2021-04-11 19:18] VITALS: BP 152/105
[2021-04-11 19:55] LABS: BASO % 0.2 % (0.0-1.0); HEMATOCRIT 42.9 % (37.0-47.0); LYMPH # 0.7 10*3/uL (1.3-4.4); LYMPH % 5.5 % (27.0-41.0); MEAN CELL VOLUME 92.3 fl (81.0-99.0); MEAN CORPUSCULAR HGB 26.2 pg (27.0-31.0); MEAN CORPUSCULAR HGB CONC 28.4 g/dl (33.0-37.0); MEAN PLATELET VOLUME 11.6 fl (9.6-12.3); MONO # 0.9 10*3/uL (0.1-1.0); MONO % 7.1 % (3.0-9.0); NEUT # 11.2 10*3/uL (2.3-7.9); NUCLEATED RED BLOOD CELL 0.2 % (0.0-0.0); PLATELET COUNT AUTOMATED 184 10*3/uL (130-400); RED BLOOD COUNT 4.65 10*6/uL (4.10-5.10); RED CELL DISTRI WIDTH 18.3 % (0-14.5)
[2021-04-11 20:00] VITALS: BP 161/94
[2021-04-11 20:06] LABS: INTERNATIONAL NORM RATIO 1.2 (2.0-3.5)
[2021-04-11 20:13] LABS: ALBUMIN 2.9 gm/dl (3.1-4.5); ALKALINE PHOSPHATASE 121 U/L (45-117); BUN 20 mg/dl (7-24); CHLORIDE 104 mmol/L (98-107); CREATININE 0.83 mg/dL (0.55-1.02); POTASSIUM 3.6 mmol/L (3.5-5.1); SGOT/AST 13 IU/L (3-35); SGPT/ALT 12 U/L (12-78); SODIUM 141 mmol/L (136-145); TOTAL PROTEIN 7.4 gm/dL (6.4-8.2)
[2021-04-11 20:14] LABS: TROPONIN I 0.019 ng/ml (<0.045)
[2021-04-11 20:20] LABS: BILIRUBIN Negative (Negative); BLOOD 1+ (Negative); CLARITY Clear (Clear); COLOR Yellow (Yellow); GLUCOSE Negative (Negative); KETONE 1+ (Negative); LEUKO ESTERASE Negative (Negative); NITRITE Positive (Negative); PH 5.5 (4.5-8.0); UROBILINOGEN 0.2 E.U./dl (0.0-1.0)
[2021-04-11 20:31] LABS: URINE AMPHETAMINES < 1000 (1000ng/ml); URINE BARBITURATES < 200 (200ng/ml); URINE BENZODIAZEPINES > 200 (200ng/ml); URINE CANNABINOIDS (THC) < 50 (50ng/ml); URINE COCAINE < 300 (300ng/ml); URINE METHADONE < 300 (300ng/ml); URINE OPIATES < 300 (300ng/ml)
[2021-04-11 20:32] LABS: BACTERIA 4+; EPITHELIAL CELLS 0-2
[2021-04-11 20:37] LABS: URINE PHENCYCLIDINE < 25 (25ng/ml)
[2021-04-11 21:00] VITALS: BP 154/88
[2021-04-11 22:01] VITALS: BP 151/79
[2021-04-11 23:15] VITALS: BP 160/74
[2021-04-11 23:27] LABS: ABG BASE EXCESS 0.4 mmol/L (-2.0-2.0); ARTERIAL BLOOD GAS PH 7.298 (7.35-7.45); ARTERIAL BLOOD GAS PO2 74.4 (80-90)
[2021-04-12] VITALS (7 sets, daily range): BP systolic 114–167; BP diastolic 64–91
[2021-04-12 06:22] LABS: HEMATOCRIT 43.7 % (37.0-47.0); MEAN CELL VOLUME 89.5 fl (81.0-99.0); MEAN CORPUSCULAR HGB 26.2 pg (27.0-31.0); MEAN CORPUSCULAR HGB CONC 29.3 g/dl (33.0-37.0); MEAN PLATELET VOLUME 10.9 fl (9.6-12.3); NUCLEATED RED BLOOD CELL 0.3 % (0.0-0.0); PLATELET COUNT AUTOMATED 159 10*3/uL (130-400); RED BLOOD COUNT 4.88 10*6/uL (4.10-5.10); RED CELL DISTRI WIDTH 18.3 % (0-14.5); WHITE BLOOD COUNT 14.1 10*3/uL (4.8-10.8)
[2021-04-12 06:39] LABS: ALBUMIN 2.6 gm/dl (3.1-4.5); BUN 18 mg/dl (7-24); CHLORIDE 97 mmol/L (98-107); LDH 277 U/L (84-246); POTASSIUM 3.1 mmol/L (3.5-5.1); SGOT/AST 14 IU/L (3-35); SGPT/ALT 10 U/L (12-78); SODIUM 140 mmol/L (136-145); TOTAL PROTEIN 7.2 gm/dL (6.4-8.2)
[2021-04-12 06:48] LABS: ALKALINE PHOSPHATASE 104 U/L (45-117)
[2021-04-12 07:28] LABS: PLATELET SUFFICIENCY NORMAL (NORMAL); TOTAL CELLS COUNTED 100 #CELLS
[2021-04-12 07:32] LABS: FERRITIN 37.1 ng/mL (10.0-291.0); VITAMIN D, 25-HYDROXY 35.4 ng/mL (30-100)
[2021-04-12] MEDS ORDERED: BUSPIRONE10 MG PO (10:05)
[2021-04-12] MEDS ORDERED: GOOD SENSE ACID20 MG PO (10:06)
[2021-04-12] MEDS ORDERED: TRESIBA FL100 UNIT/1 SQ (10:37)
[2021-04-12] MEDS ORDERED: METFORMIN HYDR500 MG PO (10:38)
[2021-04-13] VITALS: BP 124/76
[2021-04-13 06:08] LABS: BASO % 0.2 % (0.0-1.0); EOS % 0.2 % (1.0-4.0); LYMPH # 1.1 10*3/uL (1.3-4.4); MEAN CELL VOLUME 90.7 fl (81.0-99.0); MEAN CORPUSCULAR HGB 26.2 pg (27.0-31.0); MEAN CORPUSCULAR HGB CONC 28.8 g/dl (33.0-37.0); MEAN PLATELET VOLUME 11.8 fl (9.6-12.3); MONO # 0.8 10*3/uL (0.1-1.0); MONO % 7.6 % (3.0-9.0); NEUT # 8.6 10*3/uL (2.3-7.9); NEUT % 80.8 % (47.0-73.0); NUCLEATED RED BLOOD CELL 0.2 % (0.0-0.0); PLATELET COUNT AUTOMATED 174 10*3/uL (130-400); RED BLOOD COUNT 4.74 10*6/uL (4.10-5.10); WHITE BLOOD COUNT 10.7 10*3/uL (4.8-10.8)
[2021-04-13 06:24] LABS: ALBUMIN 2.3 gm/dl (3.1-4.5); ALKALINE PHOSPHATASE 97 U/L (45-117); CHLORIDE 98 mmol/L (98-107); POTASSIUM 3.2 mmol/L (3.5-5.1); SGOT/AST 10 IU/L (3-35); SGPT/ALT 11 U/L (12-78); SODIUM 141 mmol/L (136-145); TOTAL PROTEIN 6.9 gm/dL (6.4-8.2)
[2021-04-13 06:32] LABS: BUN 32 mg/dl (7-24)
[2021-04-13 08:00] VITALS: BP 154/73
[2021-04-13 12:00] VITALS: BP 139/72
[2021-04-13 16:00] VITALS: BP 146/81
[2021-04-13 20:00] VITALS: BP 132/60
[2021-04-14] VITALS: BP 138/79
[2021-04-14 06:18] LABS: ALBUMIN 2.3 gm/dl (3.1-4.5); ALKALINE PHOSPHATASE 101 U/L (45-117); BUN 28 mg/dl (7-24); CHLORIDE 94 mmol/L (98-107); CREATININE 0.71 mg/dL (0.55-1.02); POTASSIUM 3.5 mmol/L (3.5-5.1); SGOT/AST 22 IU/L (3-35); SGPT/ALT 17 U/L (12-78); SODIUM 138 mmol/L (136-145); TOTAL PROTEIN 7.1 gm/dL (6.4-8.2)
[2021-04-14 06:29] LABS: BASO % 0.3 % (0.0-1.0); EOS % 0.3 % (1.0-4.0); LYMPH # 0.8 10*3/uL (1.3-4.4); LYMPH % 10.1 % (27.0-41.0); MEAN CELL VOLUME 90.4 fl (81.0-99.0); MEAN CORPUSCULAR HGB 25.9 pg (27.0-31.0); MEAN CORPUSCULAR HGB CONC 28.7 g/dl (33.0-37.0); MEAN PLATELET VOLUME 10.9 fl (9.6-12.3); MONO # 0.5 10*3/uL (0.1-1.0); MONO % 6.4 % (3.0-9.0); NEUT # 6.5 10*3/uL (2.3-7.9); NEUT % 81.5 % (47.0-73.0); PLATELET COUNT AUTOMATED 167 10*3/uL (130-400); RED BLOOD COUNT 4.98 10*6/uL (4.10-5.10); RED CELL DISTRI WIDTH 17.5 % (0-14.5); WHITE BLOOD COUNT 7.9 10*3/uL (4.8-10.8)
[2021-04-14 08:00] VITALS: BP 164/96
[2021-04-14 12:00] VITALS: BP 153/80
[2021-04-14 16:00] VITALS: BP 155/91
[2021-04-14 20:00] VITALS: BP 132/83
[2021-04-15] VITALS: BP 111/77
[2021-04-15 06:24] LABS: BASO % 0.3 % (0.0-1.0); EOS % 0.3 % (1.0-4.0); HEMATOCRIT 45.8 % (37.0-47.0); LYMPH % 11.6 % (27.0-41.0); MEAN CELL VOLUME 89.5 fl (81.0-99.0); MEAN PLATELET VOLUME 10.8 fl (9.6-12.3); MONO # 0.6 10*3/uL (0.1-1.0); MONO % 7.2 % (3.0-9.0); NEUT % 78.9 % (47.0-73.0); PLATELET COUNT AUTOMATED 200 10*3/uL (130-400); RED BLOOD COUNT 5.12 10*6/uL (4.10-5.10); RED CELL DISTRI WIDTH 17.3 % (0-14.5); WHITE BLOOD COUNT 8.9 10*3/uL (4.8-10.8)
[2021-04-15 06:39] LABS: BUN 25 mg/dl (7-24); CHLORIDE 91 mmol/L (98-107); CREATININE 0.59 mg/dL (0.55-1.02); POTASSIUM 3.9 mmol/L (3.5-5.1); SODIUM 137 mmol/L (136-145)
[2021-04-15 08:00] VITALS: BP 140/82
[2021-04-15 10:00] LABS: ABG BASE EXCESS 19.7 mmol/L (-2.0-2.0); ARTERIAL BLOOD GAS PH 7.427 (7.35-7.45); ARTERIAL BLOOD GAS PO2 62.3 (80-90)
[2021-04-15 12:00] VITALS: BP 136/78
[2021-04-15 16:00] VITALS: BP 111/96
[2021-04-15 20:00] VITALS: BP 114/70
[2021-04-16] VITALS: BP 113/75
[2021-04-16 05:57] LABS: CHLORIDE 86 mmol/L (98-107); CREATININE 0.77 mg/dL (0.55-1.02); POTASSIUM 3.2 mmol/L (3.5-5.1); SODIUM 135 mmol/L (136-145)
[2021-04-16 06:03] LABS: BUN 37 mg/dl (7-24)
[2021-04-16 06:17] LABS: BASO % 0.4 % (0.0-1.0); EOS # 0.1 10*3/uL (0.0-0.4); EOS % 0.5 % (1.0-4.0); HEMATOCRIT 47.7 % (37.0-47.0); LYMPH # 1.2 10*3/uL (1.3-4.4); LYMPH % 10.8 % (27.0-41.0); MEAN CELL VOLUME 89.7 fl (81.0-99.0); MEAN CORPUSCULAR HGB 26.1 pg (27.0-31.0); MEAN CORPUSCULAR HGB CONC 29.1 g/dl (33.0-37.0); MEAN PLATELET VOLUME 10.8 fl (9.6-12.3); MONO % 8.4 % (3.0-9.0); NEUT # 8.9 10*3/uL (2.3-7.9); NEUT % 78.2 % (47.0-73.0); PLATELET COUNT AUTOMATED 208 10*3/uL (130-400); RED BLOOD COUNT 5.32 10*6/uL (4.10-5.10); RED CELL DISTRI WIDTH 17.2 % (0-14.5); WHITE BLOOD COUNT 11.3 10*3/uL (4.8-10.8)
[2021-04-16 08:00] VITALS: BP 113/79
[2021-04-16 12:00] VITALS: BP 122/65
[2021-04-16 16:00] VITALS: BP 108/69
[2021-04-16 17:23] LABS: ABG BASE EXCESS 15.1 mmol/L (-2.0-2.0); ARTERIAL BLOOD GAS PH 7.437 (7.35-7.45); ARTERIAL BLOOD GAS PO2 71.2 (80-90)
[2021-04-16 20:00] VITALS: BP 99/68
[2021-04-16 21:50] VITALS: BP 92/60
[2021-04-17] VITALS: BP 99/57
[2021-04-17 06:30] LABS: BASO % 0.3 % (0.0-1.0); EOS # 0.1 10*3/uL (0.0-0.4); EOS % 0.9 % (1.0-4.0); HEMATOCRIT 45.1 % (37.0-47.0); LYMPH # 1.4 10*3/uL (1.3-4.4); LYMPH % 13.1 % (27.0-41.0); MEAN CELL VOLUME 88.3 fl (81.0-99.0); MEAN CORPUSCULAR HGB 25.6 pg (27.0-31.0); MONO # 0.7 10*3/uL (0.1-1.0); MONO % 6.9 % (3.0-9.0); NEUT % 77.1 % (47.0-73.0); PLATELET COUNT AUTOMATED 188 10*3/uL (130-400); RED BLOOD COUNT 5.11 10*6/uL (4.10-5.10); RED CELL DISTRI WIDTH 17.2 % (0-14.5); WHITE BLOOD COUNT 10.3 10*3/uL (4.8-10.8)
[2021-04-17 06:46] LABS: CHLORIDE 85 mmol/L (98-107); CREATININE 1.08 mg/dL (0.55-1.02); POTASSIUM 3.4 mmol/L (3.5-5.1); SODIUM 134 mmol/L (136-145)
[2021-04-17 06:48] LABS: BUN 53 mg/dl (7-24)
[2021-04-17 08:00] VITALS: BP 103/63
[2021-04-17 12:00] VITALS: BP 113/66
[2021-04-17 19:58] LABS: ABG BASE EXCESS 18.2 mmol/L (-2.0-2.0); ARTERIAL BLOOD GAS PH 7.462 (7.35-7.45); ARTERIAL BLOOD GAS PO2 62.1 (80-90)
[2021-04-17 20:00] VITALS: BP 116/78
[2021-04-18] VITALS: BP 94/60
[2021-04-18 06:25] LABS: BASO % 0.3 % (0.0-1.0); EOS # 0.1 10*3/uL (0.0-0.4); EOS % 1.2 % (1.0-4.0); LYMPH # 1.1 10*3/uL (1.3-4.4); MEAN CELL VOLUME 87.7 fl (81.0-99.0); MEAN CORPUSCULAR HGB 26.3 pg (27.0-31.0); MEAN PLATELET VOLUME 11.6 fl (9.6-12.3); MONO # 0.7 10*3/uL (0.1-1.0); NEUT # 8.1 10*3/uL (2.3-7.9); NEUT % 78.3 % (47.0-73.0); PLATELET COUNT AUTOMATED 167 10*3/uL (130-400); RED BLOOD COUNT 4.79 10*6/uL (4.10-5.10); WHITE BLOOD COUNT 10.4 10*3/uL (4.8-10.8)
[2021-04-18 06:34] LABS: CREATININE 1.49 mg/dL (0.55-1.02); POTASSIUM 3.5 mmol/L (3.5-5.1)
[2021-04-18 08:00] VITALS: BP 100/57
[2021-04-18 12:00] VITALS: BP 100/51
[2021-04-18 16:00] VITALS: BP 82/58
[2021-04-18 18:07] LABS: ABG BASE EXCESS 16.8 mmol/L (-2.0-2.0); ARTERIAL BLOOD GAS PH 7.484 (7.35-7.45); ARTERIAL BLOOD GAS PO2 55.6 (80-90)
[2021-04-18 19:48] VITALS: BP 85/45
[2021-04-18 22:00] VITALS: BP 114/52
[2021-04-19] VITALS: BP 90/48
[2021-04-19 02:39] VITALS: BP 98/52
[2021-04-19 06:38] LABS: HEMATOCRIT 39.5 % (37.0-47.0); MEAN CELL VOLUME 88.4 fl (81.0-99.0); MEAN CORPUSCULAR HGB 26.4 pg (27.0-31.0); MEAN CORPUSCULAR HGB CONC 29.9 g/dl (33.0-37.0); MEAN PLATELET VOLUME 11.6 fl (9.6-12.3); PLATELET COUNT AUTOMATED 166 10*3/uL (130-400); RED BLOOD COUNT 4.47 10*6/uL (4.10-5.10); RED CELL DISTRI WIDTH 16.8 % (0-14.5); WHITE BLOOD COUNT 6.6 10*3/uL (4.8-10.8)
[2021-04-19 07:04] LABS: CREATININE 1.17 mg/dL (0.55-1.02); POTASSIUM 3.1 mmol/L (3.5-5.1)
[2021-04-19 07:14] LABS: PLATELET SUFFICIENCY NORMAL (NORMAL); STOMATOCYTE FEW; TARGET CELLS FEW; TOTAL CELLS COUNTED 100 #CELLS
[2021-04-19 07:58] LABS: ABG BASE EXCESS 14.5 mmol/L (-2.0-2.0); ARTERIAL BLOOD GAS PH 7.445 (7.35-7.45); ARTERIAL BLOOD GAS PO2 50.6 (80-90)
[2021-04-19 08:00] VITALS: BP 100/58
[2021-04-19 12:00] VITALS: BP 100/57
[2021-04-19 16:00] VITALS: BP 96/55
[2021-04-19 20:00] VITALS: BP 92/52; BP 96/60
[2021-04-20] VITALS: BP 90/54
[2021-04-20 06:31] LABS: HEMATOCRIT 40.2 % (37.0-47.0); MEAN CELL VOLUME 90.1 fl (81.0-99.0); MEAN CORPUSCULAR HGB 26.5 pg (27.0-31.0); MEAN CORPUSCULAR HGB CONC 29.4 g/dl (33.0-37.0); MEAN PLATELET VOLUME 12.1 fl (9.6-12.3); PLATELET COUNT AUTOMATED 171 10*3/uL (130-400); RED BLOOD COUNT 4.46 10*6/uL (4.10-5.10); RED CELL DISTRI WIDTH 16.6 % (0-14.5); WHITE BLOOD COUNT 6.2 10*3/uL (4.8-10.8)
[2021-04-20 06:44] LABS: CHLORIDE 95 mmol/L (98-107); CREATININE 0.74 mg/dL (0.55-1.02); SODIUM 136 mmol/L (136-145)
[2021-04-20 06:45] LABS: BUN 43 mg/dl (7-24)
[2021-04-20 06:53] LABS: BASOPHILS 1 % (0-1); OVALOCYTES FEW; PLATELET SUFFICIENCY NORMAL (NORMAL); POLYCHROMASIA SLIGHT; TOTAL CELLS COUNTED 100 #CELLS
[2021-04-20 06:54] LABS: STOMATOCYTE FEW
[2021-04-20 08:00] VITALS: BP 118/66
[2021-04-20 12:00] VITALS: BP 86/54
[2021-04-20 20:00] VITALS: BP 84/51
[2021-04-20 21:51] VITALS: BP 114/54
[2021-04-21] VITALS: BP 93/57
[2021-04-21 06:27] LABS: BASO % 0.4 % (0.0-1.0); EOS # 0.1 10*3/uL (0.0-0.4); EOS % 1.9 % (1.0-4.0); HEMATOCRIT 39.1 % (37.0-47.0); LYMPH # 1.2 10*3/uL (1.3-4.4); LYMPH % 18.3 % (27.0-41.0); MEAN CELL VOLUME 89.9 fl (81.0-99.0); MEAN CORPUSCULAR HGB 26.4 pg (27.0-31.0); MEAN CORPUSCULAR HGB CONC 29.4 g/dl (33.0-37.0); MEAN PLATELET VOLUME 11.8 fl (9.6-12.3); MONO # 0.6 10*3/uL (0.1-1.0); MONO % 9.2 % (3.0-9.0); NEUT # 4.6 10*3/uL (2.3-7.9); NEUT % 67.8 % (47.0-73.0); PLATELET COUNT AUTOMATED 206 10*3/uL (130-400); RED BLOOD COUNT 4.35 10*6/uL (4.10-5.10); RED CELL DISTRI WIDTH 16.9 % (0-14.5); WHITE BLOOD COUNT 6.8 10*3/uL (4.8-10.8)
[2021-04-21 06:38] LABS: BUN 39 mg/dl (7-24); CHLORIDE 97 mmol/L (98-107); POTASSIUM 3.1 mmol/L (3.5-5.1); SODIUM 138 mmol/L (136-145)
[2021-04-21 08:00] VITALS: BP 85/52
[2021-04-21 12:00] VITALS: BP 93/53
[2021-04-21 16:00] VITALS: BP 100/41
[2021-04-21 20:00] VITALS: BP 89/50
[2021-04-22] VITALS: BP 98/41
[2021-04-22 06:22] LABS: BASO % 0.5 % (0.0-1.0); EOS # 0.1 10*3/uL (0.0-0.4); EOS % 1.7 % (1.0-4.0); HEMATOCRIT 37.8 % (37.0-47.0); LYMPH # 1.1 10*3/uL (1.3-4.4); LYMPH % 19.6 % (27.0-41.0); MEAN CELL VOLUME 89.6 fl (81.0-99.0); MEAN CORPUSCULAR HGB 26.8 pg (27.0-31.0); MEAN CORPUSCULAR HGB CONC 29.9 g/dl (33.0-37.0); MEAN PLATELET VOLUME 12.2 fl (9.6-12.3); MONO # 0.5 10*3/uL (0.1-1.0); MONO % 8.2 % (3.0-9.0); NEUT # 3.9 10*3/uL (2.3-7.9); NEUT % 67.3 % (47.0-73.0); PLATELET COUNT AUTOMATED 235 10*3/uL (130-400); RED BLOOD COUNT 4.22 10*6/uL (4.10-5.10); RED CELL DISTRI WIDTH 16.9 % (0-14.5); WHITE BLOOD COUNT 5.8 10*3/uL (4.8-10.8)
[2021-04-22 06:24] LABS: CHLORIDE 99 mmol/L (98-107); POTASSIUM 3.4 mmol/L (3.5-5.1); SODIUM 140 mmol/L (136-145)
[2021-04-22 06:30] LABS: ALBUMIN 2.3 gm/dl (3.1-4.5); ALKALINE PHOSPHATASE 68 U/L (45-117); CREATININE 0.63 mg/dL (0.55-1.02); SGOT/AST 9 IU/L (3-35); SGPT/ALT 10 U/L (12-78); TOTAL PROTEIN 6.4 gm/dL (6.4-8.2)
[2021-04-22 06:39] LABS: BUN 28 mg/dl (7-24)
[2021-04-22 08:00] VITALS: BP 102/50
[2021-04-22 12:00] VITALS: BP 98/56
[2021-04-22 16:00] VITALS: BP 108/76
[2021-04-22 20:00] VITALS: BP 94/57
[2021-04-23] VITALS: BP 101/48
[2021-04-23 08:00] VITALS: BP 92/51
[2021-04-23 12:00] VITALS: BP 92/56
[2021-04-23] MEDS ORDERED: Ipratropium Brom3 ML NEB (12:25)
[2021-04-23] MEDS ORDERED: DOXYCYCLINE MO100 M1 PO (12:25)
[2021-04-23] MEDS ORDERED: Humalog SQ (12:25)
[2021-04-23] MEDS ORDERED: KLONOPIN1 M1 PO (14:59)
[2021-04-23] MEDS ORDERED: CLONAZEPAM1 MG PO (15:03)
== END 2021-04-23 16:00 | DRG 871 ==
LOC: ED → 4E 21:30 → EDHOLD 21:30 → 4E 23:30 → 5E 04-16 15:35
PROVIDERS: Emergency Medicine; Hospitalist; Internal Medicine; Internal Medicine Critical Care Medicine; Registered Nurse; Student in an Organized Health Care Education/Training Program; ADMIT Emergency Medicine; ATTEND Emergency Medicine
PROC: 5A09357 Assistance with Respiratory Ventilation, Less than 24 Consecutive Hours, Continuous Positive Airway Pressure (ICD-10-PCS; 2021-04-11)
PROC: 5A09357 Assistance with Respiratory Ventilation, Less than 24 Consecutive Hours, Continuous Positive Airway Pressure (ICD-10-PCS; 2021-04-13)
PROC: 5A09357 Assistance with Respiratory Ventilation, Less than 24 Consecutive Hours, Continuous Positive Airway Pressure (ICD-10-PCS; 2021-04-15)
PROC: 5A09457 Assistance with Respiratory Ventilation, 24-96 Consecutive Hours, Continuous Positive Airway Pressure (ICD-10-PCS; principal; 2021-04-16)
PROC: 5A09357 Assistance with Respiratory Ventilation, Less than 24 Consecutive Hours, Continuous Positive Airway Pressure (ICD-10-PCS; 2021-04-16)
PROC: 5A0935A Assistance with Respiratory Ventilation, Less than 24 Consecutive Hours, High Flow/Velocity Cannula (ICD-10-PCS; 2021-04-18)
PROC: 5A09357 Assistance with Respiratory Ventilation, Less than 24 Consecutive Hours, Continuous Positive Airway Pressure (ICD-10-PCS; 2021-04-19)
PROC: 5A0935A Assistance with Respiratory Ventilation, Less than 24 Consecutive Hours, High Flow/Velocity Cannula (ICD-10-PCS; 2021-04-19)
PROC: 5A09357 Assistance with Respiratory Ventilation, Less than 24 Consecutive Hours, Continuous Positive Airway Pressure (ICD-10-PCS; 2021-04-20)
PROC: 5A0935A Assistance with Respiratory Ventilation, Less than 24 Consecutive Hours, High Flow/Velocity Cannula (ICD-10-PCS; 2021-04-20)
PROC: 5A09357 Assistance with Respiratory Ventilation, Less than 24 Consecutive Hours, Continuous Positive Airway Pressure (ICD-10-PCS; 2021-04-21)
PROC: 5A09357 Assistance with Respiratory Ventilation, Less than 24 Consecutive Hours, Continuous Positive Airway Pressure (ICD-10-PCS; 2021-04-22)
PROC: 5A0945A Assistance with Respiratory Ventilation, 24-96 Consecutive Hours, High Flow/Velocity Cannula (ICD-10-PCS; 2021-04-22)
DX: A41.9 Sepsis, unspecified organism (principal); J96.01 Acute respiratory failure with hypoxia; G93.41 Metabolic encephalopathy; J96.02 Acute respiratory failure with hypercapnia; N17.0 Acute kidney failure with tubular necrosis; E43 Unspecified severe protein-calorie malnutrition; I50.43 Acute on chronic combined systolic (congestive) and diastolic (congestive) heart failure; J15.6 Pneumonia due to other Gram-negative bacteria; N39.0 Urinary tract infection, site not specified; J98.11 Atelectasis; Z20.822 Contact with and (suspected) exposure to COVID-19; R65.20 Severe sepsis without septic shock; E80.6 Other disorders of bilirubin metabolism; I11.0 Hypertensive heart disease with heart failure; K21.9 Gastro-esophageal reflux disease without esophagitis; E66.09 Other obesity due to excess calories; E11.65 Type 2 diabetes mellitus with hyperglycemia; E78.5 Hyperlipidemia, unspecified; R31.9 Hematuria, unspecified; F17.210 Nicotine dependence, cigarettes, uncomplicated; Z82.49 Family history of ischemic heart disease and other diseases of the circulatory system; Z83.3 Family history of diabetes mellitus; Z79.899 Other long term (current) drug therapy; Z79.4 Long term (current) use of insulin; Z99.81 Dependence on supplemental oxygen; Z68.32 Body mass index [BMI] 32.0-32.9, adult

== ENCOUNTER → 2021-07-16 | Outpatient (CLI) | payer OTHER ==
[~2021-07-16] MED LIST changes: +BUSPIRONE10 MG PO; +CLONAZEPAM1 MG PO; +DOXYCYCLINE MO100 M1 PO; +GOOD SENSE ACID20 MG PO; +Humalog SQ; +Ipratropium Brom3 ML NEB; +METFORMIN HYDR500 MG PO; +TRESIBA FL100 UNIT/1 SQ
== END | disposition home or self-care (01) ==
LOC: COVID19 15:04
PROVIDERS: ATTEND Internal Medicine
DX: Z20.822 Contact with and (suspected) exposure to COVID-19 (principal)

== ENCOUNTER → 2021-09-26 | Outpatient (CLI) | payer MEDICARE | END | disposition home or self-care (01) | LOC: RESCLI 03:47 | PROVIDERS: ATTEND Internal Medicine | DX: E11.42 Type 2 diabetes mellitus with diabetic polyneuropathy (principal); F33.41 Major depressive disorder, recurrent, in partial remission; F41.1 Generalized anxiety disorder; M54.41 Lumbago with sciatica, right side; K21.9 Gastro-esophageal reflux disease without esophagitis; I10 Essential (primary) hypertension; E78.5 Hyperlipidemia, unspecified; J44.9 Chronic obstructive pulmonary disease, unspecified; Z79.899 Other long term (current) drug therapy; Z88.8 Allergy status to other drugs, medicaments and biological substances; Z79.84 Long term (current) use of oral hypoglycemic drugs ==

== ENCOUNTER → 2022-04-10 | Outpatient (CLI) | payer MEDICARE | END | disposition home or self-care (01) | LOC: RESCLI 02:12 | PROVIDERS: ATTEND Internal Medicine | DX: I10 Essential (primary) hypertension (principal); F41.1 Generalized anxiety disorder; E11.42 Type 2 diabetes mellitus with diabetic polyneuropathy; J44.9 Chronic obstructive pulmonary disease, unspecified; E78.5 Hyperlipidemia, unspecified; K21.9 Gastro-esophageal reflux disease without esophagitis; F33.41 Major depressive disorder, recurrent, in partial remission; M54.41 Lumbago with sciatica, right side ==

== ENCOUNTER 2022-11-13 21:05 | Emergency (ER) | payer MEDICARE ==
[~2022-11-13] VITALS: Ht 152.4 cm; Wt 83.9 kg
[~2022-11-13 21:05] MED LIST changes: +BUSPIRONE HCL10 MG PO; +MAGNESIUM OXID400 MG PO; +SERTRALINE HYD100 MG PO; +VITAMIN D350 MC2 PO
[2022-11-13 21:32] LABS: HEMATOCRIT 34.2 % (37.0-47.0); MEAN CELL VOLUME 89.1 fl (81.0-99.0); MEAN CORPUSCULAR HGB 29.2 pg (27.0-31.0); MEAN CORPUSCULAR HGB CONC 32.7 g/dl (33.0-37.0); MEAN PLATELET VOLUME 10.2 fl (9.6-12.3); PLATELET COUNT AUTOMATED 157 10*3/uL (130-400); RED BLOOD COUNT 3.84 10*6/uL (4.10-5.10); WHITE BLOOD COUNT 9.8 10*3/uL (4.8-10.8)
[2022-11-13 21:37] LABS: MANUAL DIFF REFLEX YES
[2022-11-13 21:55] LABS: BILIRUBIN Negative (Negative); BLOOD Negative (Negative); CLARITY Clear (Clear); COLOR Yellow (Yellow); GLUCOSE 2+ (Negative); KETONE Negative (Negative); LEUKO ESTERASE Trace (Negative); NITRITE Negative (Negative); PH 6.5 (4.5-8.0); SPECIFIC GRAVITY 1.015 (1.001-1.030); UROBILINOGEN 0.2 E.U./dl (0.0-1.0)
[2022-11-13 21:55] LABS: ALKALINE PHOSPHATASE 91 U/L (46-116); BUN 16 mg/dl (9-23); CHLORIDE 103 mmol/L (98-107); SGPT/ALT 19 U/L (10-49); TOTAL PROTEIN 6.6 gm/dL (6.0-8.0)
[2022-11-13 22:02] LABS: TOTAL CELLS COUNTED 100 #CELLS
[2022-11-13 22:03] LABS: PLATELET SUFFICIENCY NORMAL (NORMAL); POLYCHROMASIA SLIGHT; ROULEAUX SLIGHT
[2022-11-13 22:23] LABS: BACTERIA 1+
[2022-11-13] MEDS ORDERED: CLONAZEPAM0.5 M2 PO (23:03)
[2022-11-13] MEDS ORDERED: MAGNESIUM OXID400 MG PO (23:04)
[2022-11-15] MEDS ORDERED: FAMOTIDINE20 M1 PO (12:47)
[2022-11-15] MEDS ORDERED: LANTUS SOL100 UNIT/1 SC (12:56)
== END 2022-11-14 00:45 | disposition home or self-care (01) ==
LOC: ED 21:05
PROVIDERS: Internal Medicine
DX: F03.90 Unspecified dementia, unspecified severity, without behavioral disturbance, psychotic disturbance, mood disturbance, and anxiety (principal); E87.6 Hypokalemia; E83.42 Hypomagnesemia; E44.1 Mild protein-calorie malnutrition; Z68.1 Body mass index [BMI] 19.9 or less, adult; D64.9 Anemia, unspecified; I10 Essential (primary) hypertension; E78.00 Pure hypercholesterolemia, unspecified; E11.65 Type 2 diabetes mellitus with hyperglycemia; Z88.8 Allergy status to other drugs, medicaments and biological substances; Z98.890 Other specified postprocedural states; F17.200 Nicotine dependence, unspecified, uncomplicated

== ENCOUNTER 2022-11-14 22:39 | Inpatient (IN) | payer MEDICARE ==
[~2022-11-14] VITALS: Ht 157.5 cm; Wt 83.9 kg
[~2022-11-14 22:39] MED LIST changes: +CLONAZEPAM0.5 M2 PO
[2022-11-14 22:41] VITALS: BP 150/84
[2022-11-14 23:39] LABS: BASO % 0.2 % (0.0-1.0); HEMATOCRIT 32.9 % (37.0-47.0); LYMPH # 0.5 10*3/uL (1.3-4.4); LYMPH % 5.9 % (27.0-41.0); MEAN CELL VOLUME 90.4 fl (81.0-99.0); MEAN CORPUSCULAR HGB 29.1 pg (27.0-31.0); MEAN CORPUSCULAR HGB CONC 32.2 g/dl (33.0-37.0); MEAN PLATELET VOLUME 10.2 fl (9.6-12.3); MONO # 0.6 10*3/uL (0.1-1.0); MONO % 6.7 % (3.0-9.0); NEUT # 7.6 10*3/uL (2.3-7.9); NEUT % 86.9 % (47.0-73.0); PLATELET COUNT AUTOMATED 159 10*3/uL (130-400); RED BLOOD COUNT 3.64 10*6/uL (4.10-5.10); RED CELL DISTRI WIDTH 16.8 % (0-14.5); WHITE BLOOD COUNT 8.8 10*3/uL (4.8-10.8)
[2022-11-14 23:39] LABS: BILIRUBIN Negative (Negative); BLOOD Trace-Lysed (Negative); CLARITY Cloudy (Clear); COLOR Yellow (Yellow); GLUCOSE Negative (Negative); KETONE Trace (Negative); LEUKO ESTERASE 1+ (Negative); NITRITE Positive (Negative); UROBILINOGEN 0.2 E.U./dl (0.0-1.0)
[2022-11-14 23:46] LABS: URINE AMPHETAMINES Negative (1000ng/ml); URINE BARBITURATES Negative (200ng/ml); URINE BENZODIAZEPINES Positive (200ng/ml); URINE CANNABINOIDS (THC) Negative (50ng/ml); URINE COCAINE Negative (300ng/ml); URINE METHADONE Negative (300ng/ml); URINE OPIATES Negative (300ng/ml); URINE PHENCYCLIDINE Negative (25ng/ml)
[2022-11-14 23:59] LABS: ALKALINE PHOSPHATASE 83 U/L (46-116); BUN 14 mg/dl (9-23); CHLORIDE 101 mmol/L (98-107); ETHYL ALCOHOL 4.5 mg/dl (<3); POTASSIUM 3.1 mmol/L (3.4-5.1); SGPT/ALT 11 U/L (10-49); TOTAL PROTEIN 6.5 gm/dL (6.0-8.0)
[2022-11-15] LABS: BACTERIA 3+; WBC 41-50 wbc/hpf (0-5)
[2022-11-15 02:21] VITALS: BP 149/86
[2022-11-15 02:21] LABS: BASO % 0.2 % (0.0-1.0); HEMATOCRIT 33.4 % (37.0-47.0); LYMPH # 0.8 10*3/uL (1.3-4.4); LYMPH % 8.8 % (27.0-41.0); MEAN CELL VOLUME 90.8 fl (81.0-99.0); MEAN CORPUSCULAR HGB 29.3 pg (27.0-31.0); MEAN CORPUSCULAR HGB CONC 32.3 g/dl (33.0-37.0); MEAN PLATELET VOLUME 9.9 fl (9.6-12.3); MONO # 0.8 10*3/uL (0.1-1.0); MONO % 8.6 % (3.0-9.0); NEUT # 7.3 10*3/uL (2.3-7.9); NEUT % 81.6 % (47.0-73.0); PLATELET COUNT AUTOMATED 148 10*3/uL (130-400); RED BLOOD COUNT 3.68 10*6/uL (4.10-5.10); RED CELL DISTRI WIDTH 17.2 % (0-14.5)
[2022-11-15 02:30] LABS: INTERNATIONAL NORM RATIO 1.3 (2.0-3.5)
[2022-11-15 02:45] VITALS: BP 148/86
[2022-11-15 02:45] LABS: ALKALINE PHOSPHATASE 87 U/L (46-116); BUN 17 mg/dl (9-23); CHLORIDE 101 mmol/L (98-107); CHOLESTEROL 87 mg/dL (<200); FREE T4 0.91 ng/dl (0.89-1.76); LDL CHOLESTEROL 34 mg/dL (9-159); POTASSIUM 3.2 mmol/L (3.4-5.1); SGPT/ALT 9 U/L (10-49); THYROID STIM HORMONE (HS) 1.423 uIU/ml (0.550-4.780); TOTAL PROTEIN 6.7 gm/dL (6.0-8.0); TRIGLYCERIDES 151 mg/dl (<150)
[2022-11-15 08:00] VITALS: BP 161/89
[2022-11-15 12:00] VITALS: BP 121/69
[2022-11-15] MEDS ORDERED: FAMOTIDINE20 M1 PO (12:47)
[2022-11-15] MEDS ORDERED: LANTUS SOL100 UNIT/1 SC (12:56)
[2022-11-15 16:00] VITALS: BP 157/87
[2022-11-15 20:00] VITALS: BP 124/68
[2022-11-16] VITALS: BP 126/76
[2022-11-16 05:17] LABS: BUN 13 mg/dl (9-23); CHLORIDE 100 mmol/L (98-107); POTASSIUM 3.4 mmol/L (3.4-5.1)
[2022-11-16 05:22] LABS: VITAMIN D, 25-HYDROXY 30.6 ng/mL (30-100)
[2022-11-16 06:38] LABS: BASO % 0.3 % (0.0-1.0); EOS % 0.5 % (1.0-4.0); HEMATOCRIT 33.7 % (37.0-47.0); LYMPH # 0.8 10*3/uL (1.3-4.4); LYMPH % 13.4 % (27.0-41.0); MEAN CELL VOLUME 89.6 fl (81.0-99.0); MEAN CORPUSCULAR HGB CONC 32.3 g/dl (33.0-37.0); MEAN PLATELET VOLUME 10.5 fl (9.6-12.3); MONO # 0.7 10*3/uL (0.1-1.0); MONO % 11.1 % (3.0-9.0); NEUT # 4.5 10*3/uL (2.3-7.9); NEUT % 73.9 % (47.0-73.0); PLATELET COUNT AUTOMATED 173 10*3/uL (130-400); RED BLOOD COUNT 3.76 10*6/uL (4.10-5.10); RED CELL DISTRI WIDTH 16.6 % (0-14.5); WHITE BLOOD COUNT 6.1 10*3/uL (4.8-10.8)
[2022-11-16 08:02] VITALS: BP 142/86
[2022-11-16 12:00] VITALS: BP 146/88
[2022-11-16 16:00] VITALS: BP 131/73
[2022-11-16 20:00] VITALS: BP 143/67
[2022-11-17] VITALS: BP 126/68
[2022-11-17 08:00] VITALS: BP 124/68
[2022-11-17] MEDS ORDERED: RIVASTIGMINE1 EACH T (10:59)
[2022-11-17] MEDS ORDERED: OMNICEF300 MG PO (10:59)
== END 2022-11-17 12:49 | disposition home health service (06) | DRG 871 ==
LOC: ED 22:39 → 4E 11-15 01:31 → EDHOLD 11-15 01:31 → 4E 11-15 02:09
PROVIDERS: Emergency Medicine; Family Medicine; Internal Medicine; Registered Nurse; ADMIT Emergency Medicine; ATTEND Emergency Medicine
DX: A41.9 Sepsis, unspecified organism (principal); G93.41 Metabolic encephalopathy; N39.0 Urinary tract infection, site not specified; E44.0 Moderate protein-calorie malnutrition; E87.1 Hypo-osmolality and hyponatremia; B96.1 Klebsiella pneumoniae [K. pneumoniae] as the cause of diseases classified elsewhere; R31.9 Hematuria, unspecified; F03.90 Unspecified dementia, unspecified severity, without behavioral disturbance, psychotic disturbance, mood disturbance, and anxiety; E87.6 Hypokalemia; D64.9 Anemia, unspecified; E11.65 Type 2 diabetes mellitus with hyperglycemia; E78.5 Hyperlipidemia, unspecified; F41.9 Anxiety disorder, unspecified; K21.9 Gastro-esophageal reflux disease without esophagitis; I50.9 Heart failure, unspecified; I10 Essential (primary) hypertension; Z88.8 Allergy status to other drugs, medicaments and biological substances; Z79.899 Other long term (current) drug therapy; Z79.84 Long term (current) use of oral hypoglycemic drugs; Z68.33 Body mass index [BMI] 33.0-33.9, adult

== ENCOUNTER → 2023-01-18 | Outpatient (CLI) | payer OTHER ==
[~2023-01-18] MED LIST changes: +FAMOTIDINE20 M1 PO; +LANTUS SOL100 UNIT/1 SC; +OMNICEF300 MG PO; +RIVASTIGMINE1 EACH T
== END | disposition home or self-care (01) ==
LOC: US 13:30
PROVIDERS: ATTEND Podiatrist
DX: L53.8 Other specified erythematous conditions (principal); R60.9 Edema, unspecified; M79.605 Pain in left leg

== ENCOUNTER 2023-04-09 11:31 | Emergency (ER) | payer OTHER ==
[~2023-04-09] VITALS: Ht 152.4 cm; Wt 77.1 kg
[2023-04-09 13:32] LABS: BASO % 0.1 % (0.0-1.0); EOS % 0.4 % (1.0-4.0); HEMATOCRIT 38.7 % (37.0-47.0); LYMPH # 0.9 10*3/uL (1.3-4.4); LYMPH % 10.5 % (27.0-41.0); MEAN CELL VOLUME 90.6 fl (81.0-99.0); MEAN CORPUSCULAR HGB 29.7 pg (27.0-31.0); MEAN CORPUSCULAR HGB CONC 32.8 g/dl (33.0-37.0); MEAN PLATELET VOLUME 10.1 fl (9.6-12.3); MONO # 0.8 10*3/uL (0.1-1.0); MONO % 9.3 % (3.0-9.0); NEUT # 6.6 10*3/uL (2.3-7.9); NEUT % 78.9 % (47.0-73.0); PLATELET COUNT AUTOMATED 160 10*3/uL (130-400); RED BLOOD COUNT 4.27 10*6/uL (4.10-5.10); RED CELL DISTRI WIDTH 13.6 % (0-14.5); WHITE BLOOD COUNT 8.4 10*3/uL (4.8-10.8)
[2023-04-09 13:57] LABS: ALKALINE PHOSPHATASE 90 U/L (46-116); BUN 16 mg/dl (9-23); CHLORIDE 99 mmol/L (98-107); POTASSIUM 3.5 mmol/L (3.4-5.1); SGPT/ALT 11 U/L (10-49); TOTAL PROTEIN 7.8 gm/dL (6.0-8.0)
[2023-04-09 16:54] LABS: BILIRUBIN Negative (Negative); BLOOD 1+ (Negative); CLARITY Cloudy (Clear); COLOR Yellow (Yellow); GLUCOSE Negative (Negative); KETONE Trace (Negative); LEUKO ESTERASE 3+ (Negative); NITRITE Negative (Negative); SPECIFIC GRAVITY 1.015 (1.001-1.030)
[2023-04-09 17:14] LABS: BACTERIA 4+; RBC 0-2 rbc/hpf (0-2); WBC TNTC wbc/hpf (0-5)
[2023-04-09] MEDS ORDERED: NYAMYC15 GM T (18:35)
[2023-04-09] MEDS ORDERED: OMNICEF300 MG PO (18:35)
[2023-04-09] MEDS ORDERED: POSACONAZOLE100 MG PO (18:35)
== END 2023-04-09 19:34 | disposition home or self-care (01) ==
LOC: ED 11:31
PROVIDERS: Family Medicine
DX: N39.0 Urinary tract infection, site not specified (principal); B37.2 Candidiasis of skin and nail; I10 Essential (primary) hypertension; F03.90 Unspecified dementia, unspecified severity, without behavioral disturbance, psychotic disturbance, mood disturbance, and anxiety; E78.00 Pure hypercholesterolemia, unspecified; E11.9 Type 2 diabetes mellitus without complications; Z88.8 Allergy status to other drugs, medicaments and biological substances; Z98.890 Other specified postprocedural states; F17.200 Nicotine dependence, unspecified, uncomplicated

== ENCOUNTER → 2023-04-30 | Outpatient (CLI) | payer OTHER ==
[~2023-04-30] MED LIST changes: +NYAMYC15 GM T; +POSACONAZOLE100 MG PO
== END | disposition home or self-care (01) ==
LOC: RESCLI 01:14
PROVIDERS: ATTEND Internal Medicine
DX: E11.42 Type 2 diabetes mellitus with diabetic polyneuropathy (principal); J44.9 Chronic obstructive pulmonary disease, unspecified; M54.41 Lumbago with sciatica, right side; K21.9 Gastro-esophageal reflux disease without esophagitis; E78.5 Hyperlipidemia, unspecified; I10 Essential (primary) hypertension; F33.41 Major depressive disorder, recurrent, in partial remission; F41.1 Generalized anxiety disorder; R26.2 Difficulty in walking, not elsewhere classified; R60.0 Localized edema; Z98.890 Other specified postprocedural states; Z82.49 Family history of ischemic heart disease and other diseases of the circulatory system; Z87.891 Personal history of nicotine dependence; Z88.8 Allergy status to other drugs, medicaments and biological substances; Z79.899 Other long term (current) drug therapy

== ENCOUNTER → 2023-10-27 | Outpatient (CLI) | payer OTHER ==
[~2023-10-27] MED LIST changes: +CIPRO500 MG PO; +CYCLOBENZAPRINE5 M3 PO
== END | disposition home or self-care (01) ==
LOC: LAB 18:25
PROVIDERS: ATTEND Nurse Practitioner Family
DX: R30.0 Dysuria (principal)

== ENCOUNTER → 2024-05-09 | Outpatient (CLI) | payer OTHER | END | disposition home or self-care (01) | LOC: US 13:30 | PROVIDERS: ATTEND Urology | DX: N32.81 Overactive bladder (principal); N28.1 Cyst of kidney, acquired ==